=== PATIENT | female | born 1995 | race African-American/Black ===

== ENCOUNTER 2021-08-16 19:10 | Emergency (ER) | payer OTHER ==
[~2021-08-16] VITALS: Ht 162.6 cm; Wt 75.4 kg
[2021-08-16] MEDS ORDERED: ACETAMINOPHEN 325 MG TAB PO ONE (19:45)
[2021-08-16 21:35] VITALS: O2SAT 97
[2021-08-16] MEDS ORDERED: IBUPROFEN 600MG TAB PO ONE (22:55)
[2021-08-17 00:10] VITALS: BP 114/65
== END 2021-08-17 00:14 | disposition home or self-care (01) ==
LOC: M ED 19:10
DX: R05.9 Cough, unspecified (principal); R50.9 Fever, unspecified; R06.02 Shortness of breath; U07.1 COVID-19

== ENCOUNTER 2022-02-10 20:05 | Emergency (ER) | payer OTHER ==
[~2022-02-10] VITALS: Ht 165.1 cm; Wt 78.6 kg
[2022-02-10 20:07] VITALS: BP 142/78
== END 2022-02-11 00:43 | disposition left against medical advice (07) ==
LOC: M ED 20:05
DX: Z53.21 Procedure and treatment not carried out due to patient leaving prior to being seen by health care provider (principal)

== ENCOUNTER 2022-03-07 10:31 | Emergency (ER) | payer OTHER ==
[~2022-03-07] VITALS: Ht 165.1 cm; Wt 77.7 kg
[2022-03-07 12:05] LABS: RSV AMPLIFICATION NEGATIVE (NEGATIVE)
[2022-03-07] MEDS ORDERED: AMOX875T2 PO (16:59)
[2022-03-07 17:06] VITALS: BP 124/88
== END 2022-03-07 17:08 | disposition home or self-care (01) ==
LOC: M ED 10:31
DX: J01.90 Acute sinusitis, unspecified (principal); H92.03 Otalgia, bilateral

== ENCOUNTER → 2022-05-19 | Outpatient (CLI) | payer OTHER ==
[~2022-05-19] MED LIST: AMOX875T2 PO
[2022-05-19 17:30] LABS: BASO % 0.6 % (0.0-1.0); EOS % 0.8 % (0.0-3.0); HEMATOCRIT 35.7 % (36.0-47.0); HEMOGLOBIN 12.1 g/dl (12.0-15.5); LYMPH # 1.6 10^3/uL (1.5-5.0); LYMPH % 34.3 % (24.0-44.0); MEAN CORPUSCULAR HEMOGLOBIN 29.8 pg (27.0-33.0); MEAN CORPUSCULAR HGB CONC 33.9 g/dl (32.0-36.5); MEAN CORPUSCULAR VOLUME 87.9 fl (80.0-96.0); MONO # 0.3 10^3/uL (0.0-0.8); MONO % 5.9 % (2.0-8.0); NEUTROPHILS # 2.8 10^3/uL (1.5-8.5); NEUTROPHILS % 58.2 % (36.0-66.0); PLATELET COUNT, AUTOMATED 159 10^3/uL (150-450); RED BLOOD COUNT 4.06 10^6/uL (4.00-5.40); WHITE BLOOD COUNT 4.8 10^3/uL (4.0-10.0)
[2022-05-19 17:38] LABS: ALBUMIN 3.4 G/DL (3.2-5.2); ALKALINE PHOSPHATASE 41 U/L (46-116); ALT/SGPT 14 U/L (7.0-40); AST/SGOT < 8 U/L (<34); BILIRUBIN,TOTAL 0.5 MG/DL (0.3-1.2); BLOOD UREA NITROGEN 9 MG/DL (9-23); CARBON DIOXIDE LEVEL 24 MMOL/L (20-31); CHLORIDE LEVEL 107 MMOL/L (98-107); CREATININE FOR GFR 0.63 MG/DL (0.55-1.30); GLOMERULAR FILTRATION RATE > 60.0 (>60); GLUCOSE, FASTING 79 MG/DL (60-100); IRON (FE) 106 UG/DL (50-170); PERCENT SATURATION 34.8 % (13.2-45.0); POTASSIUM SERUM 4.4 MMOL/L (3.5-5.1); SODIUM LEVEL 138 MMOL/L (136-145); TOTAL IRON BINDING CAPACITY 305 UG/DL (250-425); TOTAL PROTEIN 6.2 G/DL (5.7-8.2)
[2022-05-19 17:42] LABS: FREE T4 1.22 NG/DL (0.89-1.76)
[2022-05-19 17:43] LABS: THYROID STIMULATING HORMONE 0.037 uIU/ML (0.55-4.78)
[2022-05-19 17:44] LABS: FERRITIN 49.2 NG/ML (7.3-270.7)
[2022-05-19 17:45] LABS: FOLATE > 24.0 NG/ML (>5.4)
[2022-05-19 17:46] LABS: VITAMIN B12 LEVEL 739 PG/ML (211-911)
[2022-05-19 20:13] LABS: HCG, SERUM QUANTITATIVE 223012.4 MIU/ML (<4.2)
== END ==
LOC: M PLALAB 15:58
PROVIDERS: ATTEND Nurse Practitioner Adult Health
DX: R53.83 Other fatigue (principal); N91.2 Amenorrhea, unspecified

== ENCOUNTER → 2022-05-31 | Outpatient (CLI) | payer OTHER ==
[2022-05-31 17:29] LABS: HEMATOCRIT 36.5 % (36.0-47.0); HEMOGLOBIN 12.2 g/dl (12.0-15.5); MEAN CORPUSCULAR HEMOGLOBIN 30.3 pg (27.0-33.0); MEAN CORPUSCULAR HGB CONC 33.4 g/dl (32.0-36.5); MEAN CORPUSCULAR VOLUME 90.6 fl (80.0-96.0); PLATELET COUNT, AUTOMATED 189 10^3/uL (150-450); RED BLOOD COUNT 4.03 10^6/uL (4.00-5.40); WHITE BLOOD COUNT 5.2 10^3/uL (4.0-10.0)
[2022-05-31 19:33] LABS: HIV 1&2 SCREEN CENTAUR NEGATIVE (NEGATIVE)
[2022-05-31 22:33] LABS: GC DNA AMPLIFICATION NEGATIVE (NEGATIVE)
== END ==
LOC: M PLALAB 14:46
PROVIDERS: ATTEND Advanced Practice Midwife
DX: Z34.81 Encounter for supervision of other normal pregnancy, first trimester (principal)

== ENCOUNTER → 2022-06-07 | Outpatient (CLI) | payer OTHER | LOC: M PLALAB 15:34 | PROVIDERS: ATTEND Advanced Practice Midwife | DX: Z34.81 Encounter for supervision of other normal pregnancy, first trimester (principal) ==

== ENCOUNTER → 2022-07-25 | Outpatient (CLI) | payer OTHER | LOC: M CARPUL 10:06 | PROVIDERS: ATTEND Nurse Practitioner Adult Health | DX: R01.1 Cardiac murmur, unspecified (principal) ==

== ENCOUNTER → 2022-09-01 | Outpatient (CLI) | payer OTHER | LOC: M WHC 08:31 | PROVIDERS: ATTEND Obstetrics & Gynecology | DX: Z34.82 Encounter for supervision of other normal pregnancy, second trimester (principal) ==

== ENCOUNTER → 2022-09-01 | Outpatient (CLI) | payer OTHER ==
[2022-09-01 13:15] LABS: HEMATOCRIT 36.3 % (36.0-47.0); HEMOGLOBIN 11.8 g/dl (12.0-15.5); MEAN CORPUSCULAR HEMOGLOBIN 30.3 pg (27.0-33.0); MEAN CORPUSCULAR HGB CONC 32.5 g/dl (32.0-36.5); MEAN CORPUSCULAR VOLUME 93.3 fl (80.0-96.0); PLATELET COUNT, AUTOMATED 150 10^3/uL (150-450); RED BLOOD COUNT 3.89 10^6/uL (4.00-5.40); WHITE BLOOD COUNT 5.9 10^3/uL (4.0-10.0)
[2022-09-01 15:14] LABS: GC DNA AMPLIFICATION NEGATIVE (NEGATIVE)
== END ==
LOC: M PLALAB 09:34
PROVIDERS: ATTEND Advanced Practice Midwife
DX: Z34.92 Encounter for supervision of normal pregnancy, unspecified, second trimester (principal)

== ENCOUNTER → 2022-11-07 | Outpatient (CLI) | payer OTHER ==
[2022-11-07 16:37] LABS: HEMOGLOBIN 10.8 g/dl (12.0-15.5); MEAN CORPUSCULAR HEMOGLOBIN 30.8 pg (27.0-33.0); MEAN CORPUSCULAR HGB CONC 32.7 g/dl (32.0-36.5); PLATELET COUNT, AUTOMATED 132 10^3/uL (150-450); RED BLOOD COUNT 3.51 10^6/uL (4.00-5.40); WHITE BLOOD COUNT 4.9 10^3/uL (4.0-10.0)
[2022-11-07 16:39] LABS: ALBUMIN 2.6 G/DL (3.2-5.2); ALKALINE PHOSPHATASE 59 U/L (46-116); ALT/SGPT < 9 U/L (7.0-40); AST/SGOT 9 U/L (<34); BILIRUBIN,TOTAL 0.4 MG/DL (0.3-1.2); BLOOD UREA NITROGEN 8 MG/DL (9-23); CALCIUM LEVEL 8.3 MG/DL (8.5-10.1); CARBON DIOXIDE LEVEL 24 MMOL/L (20-31); CHLORIDE LEVEL 109 MMOL/L (98-107); CREATININE FOR GFR 0.54 MG/DL (0.55-1.30); GLOMERULAR FILTRATION RATE > 60.0 (>60); GLUCOSE, FASTING 101 MG/DL (60-100); POTASSIUM SERUM 4.1 MMOL/L (3.5-5.1); SODIUM LEVEL 142 MMOL/L (136-145); TOTAL PROTEIN 5.4 G/DL (5.7-8.2)
[2022-11-07 16:41] LABS: THYROID STIMULATING HORMONE 0.876 uIU/ML (0.55-4.78)
== END ==
LOC: M PLALAB 13:39
PROVIDERS: ATTEND Obstetrics & Gynecology
DX: O26.813 Pregnancy related exhaustion and fatigue, third trimester (principal); Z3A.34 34 weeks gestation of pregnancy
CPT/HCPCS: 36415; 80053; 84443; 85027; G0463

== ENCOUNTER → 2022-11-23 | Outpatient (REF) | payer OTHER ==
[~2022-11-23] MED LIST changes: +ACET-683 PO; +ACET500P3 PO; +COLA100C5 PO; +DIBU28OI2 TOP; +FERR325T3 PO; +IBUP-1022 PO; +PRENTAB9 PO
== END ==
LOC: M PLALAB 14:53
PROVIDERS: ATTEND Obstetrics & Gynecology
DX: Z34.80 Encounter for supervision of other normal pregnancy, unspecified trimester (principal)
CPT/HCPCS: 87081; G0463

== ENCOUNTER 2022-12-18 10:07 | Outpatient (CLI) | payer OTHER ==
[~2022-12-18] VITALS: Ht 165.1 cm; Wt 83.1 kg
[~2022-12-18 10:07] MED LIST changes: -ACET-683 PO; -ACET500P3 PO; -COLA100C5 PO; -DIBU28OI2 TOP; -FERR325T3 PO; -IBUP-1022 PO; -PRENTAB9 PO
[2022-12-18 10:30] VITALS: BP 117/66; O2SAT 99
[2022-12-18] MEDS ORDERED: PRENTAB9 PO (10:33)
[2022-12-18] MEDS ORDERED: ACET500P3 PO (10:33)
[2022-12-18] MEDS ORDERED: COLA100C5 PO (10:33)
[2022-12-18] MEDS ORDERED: DIBU28OI2 TOP (10:34)
[2022-12-18] MEDS ORDERED: HOME MED LIST COMPLETE! XX SCH (10:35)
[2022-12-18 11:49] VITALS: BP 140/108
[2022-12-18 11:50] VITALS: BP 114/59
[2022-12-25] MEDS ORDERED: FERR325T3 PO (17:00)
== END 2022-12-18 14:05 | disposition home or self-care (01) ==
LOC: M LDO 10:07
PROVIDERS: ATTEND Advanced Practice Midwife
DX: O36.8130 Decreased fetal movements, third trimester, not applicable or unspecified (principal); O26.893 Other specified pregnancy related conditions, third trimester; O99.513 Diseases of the respiratory system complicating pregnancy, third trimester; J00 Acute nasopharyngitis [common cold]; Z3A.40 40 weeks gestation of pregnancy
CPT/HCPCS: 59025; 76815; 87486; 87581; 87633; 87798; G0463

== ENCOUNTER 2023-12-07 23:39 | Emergency (ER) | payer OTHER ==
[~2023-12-07] VITALS: Ht 165.1 cm; Wt 81.4 kg
[~2023-12-07 23:39] MED LIST changes: +ACET-683 PO; +ACET500P3 PO; +COLA100C5 PO; +DIBU28OI2 TOP; +FERR325T3 PO; +IBUP-1022 PO; +PRENTAB9 PO
[2023-12-08] MEDS: ACETAMINOPHEN 500 MG TAB PO ONE (07:37)
[2023-12-08 07:51] LABS: BASO % 0.8 % (0.0-1.0); EOS # 0.1 10^3/uL (0.0-0.5); HEMATOCRIT 37.4 % (36.0-47.0); HEMOGLOBIN 12.4 g/dl (12.0-15.5); LYMPH # 2.1 10^3/uL (1.5-5.0); LYMPH % 41.7 % (24.0-44.0); MEAN CORPUSCULAR HEMOGLOBIN 29.2 pg (27.0-33.0); MEAN CORPUSCULAR HGB CONC 33.2 g/dl (32.0-36.5); MEAN CORPUSCULAR VOLUME 88.2 fl (80.0-96.0); MONO # 0.4 10^3/uL (0.0-0.8); MONO % 7.1 % (2.0-8.0); NEUTROPHILS # 2.4 10^3/uL (1.5-8.5); NEUTROPHILS % 49.2 % (36.0-66.0); PLATELET COUNT, AUTOMATED 163 10^3/uL (150-450); RED BLOOD COUNT 4.24 10^6/uL (4.00-5.40)
[2023-12-08 08:22] LABS: BLOOD UREA NITROGEN 8 MG/DL (9-23); CALCIUM LEVEL 9.4 MG/DL (8.5-10.1); CARBON DIOXIDE LEVEL 22 MMOL/L (20-31); CHLORIDE LEVEL 108 MMOL/L (98-107); CREATININE FOR GFR 0.58 MG/DL (0.55-1.30); GLOMERULAR FILTRATION RATE > 60.0 (>60); GLUCOSE, FASTING 77 MG/DL (60-100); POTASSIUM SERUM 4.5 MMOL/L (3.5-5.1); SODIUM LEVEL 138 MMOL/L (136-145)
[2023-12-08 08:23] LABS: THYROID STIMULATING HORMONE 0.013 uIU/ML (0.55-4.78)
[2023-12-08 08:24] LABS: FREE T4 1.49 NG/DL (0.89-1.76)
[2023-12-08 09:45] VITALS: BP 133/73; TEMP 97.8; O2SAT 100
== END 2023-12-08 09:50 | disposition home or self-care (01) ==
LOC: M ED 23:39
DX: O20.8 Other hemorrhage in early pregnancy (principal); Z3A.01 Less than 8 weeks gestation of pregnancy; Z79.899 Other long term (current) drug therapy

== ENCOUNTER → 2023-12-20 | Outpatient (CLI) | payer OTHER ==
[2023-12-20 18:20] LABS: HEMATOCRIT 34.9 % (36.0-47.0); HEMOGLOBIN 11.8 g/dl (12.0-15.5); MEAN CORPUSCULAR HEMOGLOBIN 30.4 pg (27.0-33.0); MEAN CORPUSCULAR HGB CONC 33.8 g/dl (32.0-36.5); MEAN CORPUSCULAR VOLUME 89.9 fl (80.0-96.0); PLATELET COUNT, AUTOMATED 188 10^3/uL (150-450); RED BLOOD COUNT 3.88 10^6/uL (4.00-5.40); WHITE BLOOD COUNT 5.8 10^3/uL (4.0-10.0)
[2023-12-20 18:41] LABS: HIV 1&2 SCREEN NEGATIVE (NEGATIVE)
[2023-12-20 18:49] LABS: HEPATITIS C VIRUS ABY INDEX < 0.02 INDEX (<0.8)
[2023-12-20 21:14] LABS: GC DNA AMPLIFICATION NEGATIVE (NEGATIVE)
== END ==
LOC: M PLALAB 14:42
PROVIDERS: ATTEND Specialist
DX: Z34.81 Encounter for supervision of other normal pregnancy, first trimester (principal)

== ENCOUNTER → 2024-01-22 | Outpatient (CLI) | payer OTHER | LOC: M RAD 13:04 | PROVIDERS: ATTEND Physician Assistant Medical | DX: M25.531 Pain in right wrist (principal) ==

== ENCOUNTER → 2024-01-23 | Outpatient (CLI) | payer OTHER ==
[2024-01-28 00:48] LABS: HEMOGLOBINOPATHY EVAL HGB 12.3 g/dL (11.7-15.5); HEMOGLOBINOPATHY EVAL HGB A 97.4 % (>96.0); HEMOGLOBINOPATHY EVAL HGB A2 2.6 % (2.0-3.2); HEMOGLOBINOPATHY EVAL MCH 30.1 pg (27.0-33.0); HEMOGLOBINOPATHY EVAL MCV 92.9 fL (80.0-100.0); HEMOGLOBINOPATHY EVAL RBC 4.09 Mill/uL (3.80-5.10); HEMOGLOBINOPATHY EVAL RDW 13.3 % (11.0-15.0)
== END ==
LOC: M PLALAB 15:10
PROVIDERS: ATTEND Advanced Practice Midwife
DX: Z34.82 Encounter for supervision of other normal pregnancy, second trimester (principal)

== ENCOUNTER → 2024-01-23 | Outpatient (CLI) | payer OTHER | LOC: M WHC 14:27 | PROVIDERS: ATTEND Advanced Practice Midwife | DX: Z34.82 Encounter for supervision of other normal pregnancy, second trimester (principal); Z56.9 Unspecified problems related to employment ==

== ENCOUNTER → 2024-03-27 | Outpatient (CLI) | payer OTHER | LOC: M WHC 14:27 | PROVIDERS: ATTEND Advanced Practice Midwife | DX: Z34.82 Encounter for supervision of other normal pregnancy, second trimester (principal) ==

== ENCOUNTER → 2024-04-11 | Outpatient (REF) | payer OTHER | LOC: M LAB REF 15:39 | PROVIDERS: ATTEND Family Medicine | DX: M54.50 Low back pain, unspecified (principal) ==

== ENCOUNTER → 2024-04-17 | Outpatient (CLI) | payer OTHER ==
[2024-04-17 18:02] LABS: HEMATOCRIT 34.9 % (36.0-47.0); HEMOGLOBIN 11.5 g/dl (12.0-15.5); MEAN CORPUSCULAR HEMOGLOBIN 30.5 pg (27.0-33.0); MEAN CORPUSCULAR VOLUME 92.6 fl (80.0-96.0); PLATELET COUNT, AUTOMATED 147 10^3/uL (150-450); RED BLOOD COUNT 3.77 10^6/uL (4.00-5.40); WHITE BLOOD COUNT 6.8 10^3/uL (4.0-10.0)
[2024-04-17 18:36] LABS: GLUCOSE CHALLENGE TEST 1 HOUR 114 MG/DL (LESS THAN 140)
[2024-04-17 19:09] LABS: HIV 1&2 SCREEN NEGATIVE (NEGATIVE)
[2024-04-17 19:16] LABS: HEPATITIS C VIRUS ABY INDEX < 0.02 INDEX (<0.8)
[2024-04-17 21:25] LABS: GC DNA AMPLIFICATION NEGATIVE (NEGATIVE)
== END ==
LOC: M PLALAB 14:39
PROVIDERS: ATTEND Nurse Practitioner Family
DX: Z34.82 Encounter for supervision of other normal pregnancy, second trimester (principal)

== ENCOUNTER 2024-05-14 18:36 | Emergency (ER) | payer OTHER ==
[~2024-05-14] VITALS: Ht 165.1 cm; Wt 85.0 kg
[2024-05-14 19:37] LABS: BLOOD UREA NITROGEN 9 MG/DL (9-23); CALCIUM LEVEL 9.3 MG/DL (8.5-10.1); CARBON DIOXIDE LEVEL 26 MMOL/L (20-31); CHLORIDE LEVEL 107 MMOL/L (98-107); CK-MB VALUE MASS < 1.0 NG/ML (<3.6); CPK CREATINE PHOSPHOKINASE 41 U/L (34-145); CREATININE FOR GFR 0.58 MG/DL (0.55-1.30); GLOMERULAR FILTRATION RATE > 60.0 (>60); GLUCOSE, FASTING 103 MG/DL (60-100); MB/CK RELATIVE INDEX 2.43 (< OR =4); SODIUM LEVEL 141 MMOL/L (136-145)
[2024-05-14 20:04] LABS: BASO % 0.5 % (0.0-1.0); EOS # 0.1 10^3/uL (0.0-0.5); HEMATOCRIT 34.4 % (36.0-47.0); HEMOGLOBIN 11.5 g/dl (12.0-15.5); LYMPH # 1.7 10^3/uL (1.5-5.0); LYMPH % 26.2 % (24.0-44.0); MEAN CORPUSCULAR HEMOGLOBIN 30.7 pg (27.0-33.0); MEAN CORPUSCULAR HGB CONC 33.4 g/dl (32.0-36.5); MEAN CORPUSCULAR VOLUME 91.7 fl (80.0-96.0); MONO # 0.4 10^3/uL (0.0-0.8); MONO % 5.6 % (2.0-8.0); NEUTROPHILS # 4.2 10^3/uL (1.5-8.5); NEUTROPHILS % 65.2 % (36.0-66.0); PLATELET COUNT, AUTOMATED 143 10^3/uL (150-450); RED BLOOD COUNT 3.75 10^6/uL (4.00-5.40); WHITE BLOOD COUNT 6.4 10^3/uL (4.0-10.0)
[2024-05-14 21:06] LABS: CK-MB VALUE MASS < 1.0 NG/ML (<3.6)
[2024-05-14 21:10] LABS: CPK CREATINE PHOSPHOKINASE 45 U/L (34-145); MB/CK RELATIVE INDEX 2.22 (< OR =4)
[2024-05-14] MEDS ORDERED: ISOVUE-370 76% 100ML VIAL As Ordered ONE (22:37)
[2024-05-14 23:15] VITALS: BP 110/60; TEMP 98; O2SAT 100
[2024-05-15] MEDS ORDERED: PROT20TA11 PO (00:15)
[2024-05-15] MEDS: PANTOPRAZOLE 20 MG TAB PO ONE (00:36)
== END 2024-05-15 00:47 | disposition home or self-care (01) ==
LOC: M ED 18:36
DX: O99.613 Diseases of the digestive system complicating pregnancy, third trimester (principal); K44.9 Diaphragmatic hernia without obstruction or gangrene; K21.9 Gastro-esophageal reflux disease without esophagitis; Z3A.32 32 weeks gestation of pregnancy; Z79.899 Other long term (current) drug therapy
CPT/HCPCS: 71045; 71275; 80048; 82550; 82553; 84484; 85025; 85379; 93005; 93041; 93970; 94760; 99284; Q9967

== ENCOUNTER → 2024-06-12 | Outpatient (REF) | payer OTHER ==
[~2024-06-12] MED LIST changes: +PROT20TA11 PO
== END ==
LOC: M SFHCWAGY 17:19
PROVIDERS: ATTEND Nurse Practitioner Family
DX: Z36.85 Encounter for antenatal screening for Streptococcus B (principal); Z3A.36 36 weeks gestation of pregnancy

== ENCOUNTER 2024-06-27 18:01 | Outpatient (CLI) | payer OTHER ==
[~2024-06-27] VITALS: Ht 162.6 cm; Wt 87.0 kg
[2024-06-27 18:22] VITALS: BP 121/68; O2SAT 98
[2024-06-27] MEDS ORDERED: CALC500C16 PO (18:29)
[2024-06-27] MEDS ORDERED: HOME MED LIST COMPLETE! XX SCH (18:35)
[2024-06-27 18:39] VITALS: O2SAT 100
[2024-06-27] MEDS: ACETAMINOPHEN 500 MG TAB PO ONE (18:57)
== END 2024-06-27 20:21 | disposition home or self-care (01) ==
LOC: M LDO 18:01
PROVIDERS: ATTEND Specialist
DX: O47.1 False labor at or after 37 completed weeks of gestation (principal); J06.9 Acute upper respiratory infection, unspecified; O99.513 Diseases of the respiratory system complicating pregnancy, third trimester; Z3A.38 38 weeks gestation of pregnancy
CPT/HCPCS: 59025; 87486; 87581; 87633; 87798; G0463

== ENCOUNTER 2024-07-02 13:15 | Outpatient (CLI) | payer OTHER ==
[~2024-07-02] VITALS: Ht 165.1 cm; Wt 88.7 kg
[~2024-07-02 13:15] MED LIST changes: +CALC500C16 PO
[2024-07-02 14:44] VITALS: BP 139/73
[2024-07-02] MEDS: ACETAMINOPHEN 500 MG TAB PO ONE (15:14)
== END 2024-07-02 15:17 | disposition home or self-care (01) ==
LOC: M LDO 13:15
PROVIDERS: ATTEND Advanced Practice Midwife
DX: O47.1 False labor at or after 37 completed weeks of gestation (principal); O26.893 Other specified pregnancy related conditions, third trimester; O99.343 Other mental disorders complicating pregnancy, third trimester; N89.8 Other specified noninflammatory disorders of vagina; F32.A Depression, unspecified; Z3A.39 39 weeks gestation of pregnancy
CPT/HCPCS: 59025; G0463

== ENCOUNTER 2024-07-03 14:23 | Inpatient (IN) | payer OTHER ==
[2024-07-03] VITALS (13 sets, daily range): BP systolic 88–124; BP diastolic 53–89
[~2024-07-03] VITALS: Ht 165.1 cm; Wt 86.5 kg
[2024-07-03] MEDS ORDERED: HOME MED LIST COMPLETE! XX SCH (15:05)
[2024-07-03 16:45] LABS: HEMATOCRIT 34.6 % (36.0-47.0); HEMOGLOBIN 11.7 g/dl (12.0-15.5); MEAN CORPUSCULAR HEMOGLOBIN 30.8 pg (27.0-33.0); MEAN CORPUSCULAR HGB CONC 33.8 g/dl (32.0-36.5); MEAN CORPUSCULAR VOLUME 91.1 fl (80.0-96.0); PLATELET COUNT, AUTOMATED 142 10^3/uL (150-450); WHITE BLOOD COUNT 6.3 10^3/uL (4.0-10.0)
[2024-07-03 17:44] LABS: HIV 1&2 SCREEN NEGATIVE (NEGATIVE)
[2024-07-03 17:51] LABS: HEPATITIS C VIRUS ABY INDEX 0.02 INDEX (<0.8)
[2024-07-03] MEDS ORDERED: TRANEXAMIC ACID INJection 1,000 MG in NS 100 ML IV PRN (18:55)
[2024-07-03] MEDS ORDERED: CARBOPROST TROMETHAMINE 250 MCG/ML AMP IM PRN (18:55)
[2024-07-03] MEDS ORDERED: LIDOCAINE 1% MDV 20ML VIAL INFIL PRN (18:55)
[2024-07-03] MEDS ORDERED: OXYTOCIN DRIP 30 UNITS in IV 1 EA IV PRN (18:55)
[2024-07-03] MEDS ORDERED: METHYLERGONOVINE MALEATE 0.2MG/ML 1ML VIAL IM PRN (18:55)
[2024-07-03] MEDS: ACETAMINOPHEN 500 MG TAB PO PRN (19:12)
[2024-07-03] MEDS: LR 1,000 ML IV SCH (19:25)
[2024-07-03] MEDS: OXYTOCIN DRIP 30 UNITS in IV 1 EA IV SCH (19:25)
[2024-07-03] MEDS: PROMETHAZINE 25MG/ML 1ML VIAL IV PRN (19:44)
[2024-07-03] MEDS: BUTORPHANOL 2 MG/ML 1ML VIAL IV PRN (19:44)
[2024-07-04] VITALS (20 sets, daily range): BP systolic 90–204; BP diastolic 53–153; O2SAT 96–100
[2024-07-04] MEDS ORDERED: LR 500 ML IV PRN (02:05)
[2024-07-04] MEDS ORDERED: NALOXONE INJ 0.4MG/1ML VIAL IV PRN (02:05)
[2024-07-04] MEDS ORDERED: diphenhydrAMINE 50MG/ML VIAL IV PRN (02:05)
[2024-07-04] MEDS ORDERED: EPIDURAL/PCA KEYS XX PRN (02:05)
[2024-07-04] MEDS ORDERED: ePHEDrine SULFATE 25 MG/5 ML(5MG/ML) SYRINGE IVP PRN (02:05)
[2024-07-04] MEDS: FENTANYL/ROPIVACAINE/NACL BAG 100 ML EPIDURAL SCH (02:11)
[2024-07-04] MEDS: LACTATED RINGER'S 1000 ML IV STA (02:12)
[2024-07-04] MEDS: ONDANSETRON 4MG 2ML VIAL IV PRN (02:23)
[2024-07-04] MEDS ORDERED: IBUPROFEN 600MG TAB PO PRN (03:15)
[2024-07-04] MEDS ORDERED: ANUSOL HC CREAM 30GM TOP PRN (03:15)
[2024-07-04] MEDS ORDERED: DIBUCAINE 1% OINTMENT 30GM TOP PRN (03:15)
[2024-07-04] MEDS ORDERED: ONDANSETRON 4MG 2ML VIAL IV PRN (03:15)
[2024-07-04] MEDS: OXYTOCIN DRIP 30 UNITS in IV 1 EA IV SCH (03:15)
[2024-07-04] MEDS ORDERED: CALCIUM CARBONATE 500 MG CHEW U/D PO PRN (03:15)
[2024-07-04] MEDS ORDERED: RHOGAM 300MCG (1500IU) INJ IM SCH (03:15)
[2024-07-04] MEDS ORDERED: METHYLERGONOVINE MALEATE 0.2 MG TAB PO PRN (03:15)
[2024-07-04] MEDS ORDERED: DOCUSATE SODIUM 100MG CAPSULE PO PRN (03:15)
[2024-07-04] MEDS ORDERED: ACETAMINOPHEN 325 MG TAB PO PRN (03:15)
[2024-07-04] MEDS: ACETAMINOPHEN 500 MG TAB PO PRN (09:53)
[2024-07-04] MEDS: PRENATAL VITAMINS CHEWABLE TABLET PO SCH (09:53)
[2024-07-04] MEDS: IBUPROFEN 800 MG TAB PO PRN (15:58)
[2024-07-04] MEDS: PERCOCET 5MG/325MG TAB PO ONE (17:30)
[2024-07-04] MEDS ORDERED: LEXA1TAB PO (22:06)
[2024-07-05 05:55] VITALS: BP 99/51; O2SAT 98
[2024-07-05] MEDS: ESCITALOPRAM OXALATE 10 MG TAB (LEXAPRO) PO SCH (07:41)
[2024-07-06] MEDS ORDERED: MEASLES,MUMPS,RUBELLA VACCINE INJ (MMR-II) SC.IMMUN ONE (09:00)
== END 2024-07-05 15:45 | disposition home or self-care (01) | DRG 807 ==
LOC: M LDI 14:23 → M OBS 07-04 05:40
PROVIDERS: ADMIT Obstetrics & Gynecology; ATTEND Obstetrics & Gynecology
PROC: 3E033VJ Introduction of Other Hormone into Peripheral Vein, Percutaneous Approach (ICD-10-PCS; 2024-07-03)
PROC: 10E0XZZ Delivery of Products of Conception, External Approach (ICD-10-PCS; principal; 2024-07-04)
PROC: 10907ZC Drainage of Amniotic Fluid, Therapeutic from Products of Conception, Via Natural or Artificial Opening (ICD-10-PCS; 2024-07-04)
DX: O99.62 Diseases of the digestive system complicating childbirth (principal); Z37.0 Single live birth; Z3A.39 39 weeks gestation of pregnancy; K21.9 Gastro-esophageal reflux disease without esophagitis

== ENCOUNTER → 2024-07-23 | Outpatient (REF) | payer OTHER ==
[~2024-07-23] MED LIST changes: +LEXA1TAB PO
[2024-07-23 15:35] LABS: APPEARANCE, URINE CLEAR (CLEAR); BACTERIA, URINE AUTO NEGATIVE (NEGATIVE); BILIRUBIN, URINE AUTO NEGATIVE (NEGATIVE); BLOOD, URINE BLOOD 2+ (NEGATIVE); COLOR, URINE YELLOW (YELLOW); GLUCOSE, URINE (UA) AUTO NEGATIVE (NEGATIVE); KETONE, URINE AUTO NEGATIVE (NEGATIVE); LEUKOCYTE ESTERASE, URINE AUTO TRACE (NEGATIVE); NITRITE, URINE AUTO NEGATIVE (NEGATIVE); PROTEIN, URINE AUTO NEGATIVE (NEGATIVE); RBC, URINE AUTO 2 /HPF (0-3); SPECIFIC GRAVITY URINE AUTO 1.016 (1.002-1.035); SQUAMOUS EPITHELIAL CELL UR AU 0 /HPF (0-6); UROBILINOGEN, URINE AUTO 0.2 mg/dL (0.0-2.0); WBC, URINE AUTO 0 /HPF (0-3)
== END ==
LOC: M SFHCWAGY 14:57
PROVIDERS: ATTEND Obstetrics & Gynecology
DX: R30.0 Dysuria (principal)

== ENCOUNTER → 2024-08-18 | Outpatient (CLI) | payer OTHER ==
[2024-08-18 15:50] LABS: HEMATOCRIT 43.1 % (36.0-47.0); MEAN CORPUSCULAR HEMOGLOBIN 29.4 pg (27.0-33.0); MEAN CORPUSCULAR HGB CONC 32.5 g/dl (32.0-36.5); MEAN CORPUSCULAR VOLUME 90.4 fl (80.0-96.0); PLATELET COUNT, AUTOMATED 171 10^3/uL (150-450); RED BLOOD COUNT 4.77 10^6/uL (4.00-5.40)
== END ==
LOC: M PLALAB 12:10
PROVIDERS: ATTEND Obstetrics & Gynecology
DX: Z39.2 Encounter for routine postpartum follow-up (principal)

== ENCOUNTER 2024-11-08 10:18 | Emergency (ER) | payer OTHER ==
[~2024-11-08] VITALS: Ht 165.1 cm; Wt 87.5 kg
[2024-11-08 14:05] VITALS: BP 109/71; TEMP 97.3; O2SAT 99
== END 2024-11-08 14:15 | disposition home or self-care (01) ==
LOC: M ED 10:18
DX: R52 Pain, unspecified (principal); B34.8 Other viral infections of unspecified site

== ENCOUNTER → 2025-03-11 | Outpatient (REF) | payer OTHER ==
[~2025-03-11] MED LIST changes: -IBUP-1022 PO; +IBUP600T42 PO
== END ==
LOC: M LAB REF 18:02
PROVIDERS: ATTEND Physician Assistant
DX: B34.9 Viral infection, unspecified (principal)